=== PATIENT | female | born 1955 | race Caucasian/White ===

== ENCOUNTER 2020-03-30 15:15 | Emergency (ER) | payer MEDICARE, BC ==
[2020-03-30] MEDS ORDERED: Sodium Chloride 0.9% 10 ML Syringe FLUSH PRN (15:32)
[2020-03-30] MEDS ORDERED: Lactated Ringers 1,000 ML IV ONE (15:53)
[2020-03-30 16:06] LABS: CHLORIDE,CL 98 mmol/L (98-107); SODIUM,NA 134 mmol/L (136-145)
[2020-03-30 16:09] LABS: ANION GAP 14.7 mmol/L (10-20)
[2020-03-30] MEDS ORDERED: metroNIDAZOLE/Normal Saline 500 MG in Premix Bag 1 BAG IV ONE (16:13)
[2020-03-30] MEDS ORDERED: Lactated Ringers 1,000 ML IV SCH (17:00)
--- NOTE | 2020-03-30 17:31 | EDM.PDOC ---
ED HPI GENERAL MEDICAL PROBLEM - General Chief Complaint: General Stated Complaint: POSSIBLE CONCUSSION AND DEHYDRATION Time Seen by Provider: 03/30/20 15:30 Source of Information: Reports: Patient History Limitations: Reports: No Limitations - History of Present Illness INITIAL COMMENTS - FREE TEXT/NARRATIVE: Patient comes emergency department today from the clinic for further evaluation of bowel episode. This patient last night was at home she felt lightheaded and she passed out fell against the wall striking her head. She did not get knocked out she reports. She has no headache nausea vomiting blurred vision visual acuity changes head neck or back pain today or now. She went to the clinic today because she has had diarrhea constantly since 07 of March. She has about anywhere from 4-6 very watery diarrheal stools every day. Primarily in the morning. She has little appetite. She has been trying to drink fluids. She has not had much for nausea or vomiting. No abdominal pain or cramping. No chest pain no shortness of breath or difficulty breathing. No palpitations. No hematuria dysuria or urinary frequency. She has been seen in the clinic multi ple times since March 07 and has only been tested for COVID which were all negative an again today she was negative. No stool cultures or labs have been obtained per the patient. She was on anti-biotics at the end of January for a dental infection. Abdominal Pain Score (Numeric/FACES): 5 - Related Data Allergies Allergy/AdvReac Type Severity Reaction Status Date / Time No Known Allergies Allergy Verified 03/30/20 16:18 Home Meds: Home Meds Calcium Carb, Citrate/Vit D3 [Calcium + D3 ER Tablet] 1 each PO BID 03/30/20 [History] Latanoprost [Xalatan] 1 drop EYEBOTH DAILY 03/30/20 [History] Multivitamin 1 each PO DAILY 03/30/20 [History] Vancomycin [Vancocin 125 MG Capsule] 125 mg PO Q6HR #40 cap 03/30/20 [Rx] Past Medical History HEENT History: Reports: Cataract, Glaucoma Musculoskeletal History: Reports: Arthritis Oncologic (Cancer) History: Reports: Breast, Squamous Cell Carcinoma - Past Surgical History Oncologic Surgical History: Reports: Lumpectomy Social & Family History - Tobacco Use Tobacco Use Status *Q: Never Tobacco User ED ROS GENERAL - Review of Systems Review Of Systems: Comprehensive ROS is negative, except as noted in HPI. ED EXAM, GENERAL - Physical Exam Exam: See Below Exam Limited By: No Limitations General Appearance: Alert, WD/WN, No Apparent Distress Eye Exam: Bilateral Eye: PERRL Ears: Normal External Exam Nose: Normal Inspection Throat/Mouth: Normal Inspection, Normal Lips Head: Atraumatic, Normocephalic Neck: Normal Inspection, Supple, Non-Tender, Full Range of Motion Respiratory/Chest: No Respiratory Distress, Lungs Clear, Normal Breath Sounds, No Accessory Muscle Use, Chest Non-Tender Cardiovascular: Normal Peripheral Pulses, Regular Rate, Rhythm, Tachycardia (Tachycardia with bounding peripheral pulses) GI/Abdominal: Normal Bowel Sounds (hyperactive), Soft, Non-Tender, No Organomegaly, No Distention, Pelvis Stable (Female) Exam: Deferred Rectal (Female) Exam: Deferred Back Exam: Normal Inspection, Full Range of Motion Extremities: Normal Inspection, Normal Range of Motion, Non-Tender, No Pedal Edema, Normal Capillary Refill Neurological: Alert, Oriented, Normal Cognition, No Motor/Sensory Deficits Psychiatric: Normal Affect, Normal Mood Skin Exam: Dry, Intact, No Rash, Cool, Pallor Course - Vital Signs Last Recorded V/S: Last Vital Signs Temp 98 F 03/30/20 15:20 Pulse 111 H 03/30/20 15:20 Resp 16 03/30/20 15:20 BP 94/68 03/30/20 15:20 Pulse Ox 97 03/30/20 15:20 - Orders/Labs/Meds Orders: Active Orders 24 hr Category Date Time Status BLOOD SMEARS TO PATHOLOGIST [REF] Stat Lab 03/30/20 15:38 Received CLOSTRIDIUM DIFFICILE TOX RFLX [MREF] Stat Lab 03/30/20 16:30 Received CULTURE BLOOD [BC] Stat Lab 03/30/20 16:04 Received CULTURE BLOOD [BC] Stat Lab 03/30/20 16:09 Received Lactated Ringers [Ringers, Lactated] 1,000 ml Med 03/30/20 17:00 Active IV ASDIRECTED Sodium Chloride 0.9% [Saline Flush] Med 03/30/20 15:32 Active 10 ml FLUSH ASDIRECTED PRN Blood Culture x2 Reflex Set [OM.PC] Stat Oth 03/30/20 15:55 Ordered Isolation [COMM] Stat Oth 03/30/20 15:53 Ordered Peripheral IV Insertion Adult [OM.PC] Stat Oth 03/30/20 15:32 Ordered Medication Orders Lactated Ringer's (Ringers, Lactated) 1,000 mls @ 500 drops/hr IV ASDIRECTED TENISHA Last Admin: 03/30/20 17:43 Dose: 500 drops/hr Documented by: JAQUELIN Sodium Chloride (Saline Flush) 10 ml FLUSH ASDIRECTED PRN PRN Reason: Keep Vein Open Labs: Laboratory Tests 03/30/20 03/30/20 03/30/20 Range/Units 15:28 15:28 15:28 WBC 20.6 H* (4.0-10.0) x10^3/uL RBC 4.67 (4.00-5.50) x10^6/uL Hgb 13.9 (12.0-16.0) g/dL Hct 40.7 (33.0-47.0) % MCV 87.2 (78.0-93.0) fL MCH 29.8 (26.0-32.0) pg MCHC 34.2 (32.0-36.0) g/dL RDW Coeff of Alicia 13.1 (10.0-15.0) % Plt Count 358 (130-400) x10^3/uL Add Manual Diff Yes Neutrophils % (Manual) 37 L (50-80) % Band Neutrophils % 49 H (0-6) % Lymphocytes % (Manual) 6 L (25-50) % Monocytes % (Manual) 6 (2-11) % Eosinophils % (Manual) 1 (0-4) % Blast Cells % 1 H (0) % Platelet Estimate Adequate Sodium 134 L (136-145) mmol/L Potassium 3.7 (3.5-5.1) mmol/L Chloride 98 (98-107) mmol/L Carbon Dioxide 25 (21-32) mmol/L Anion Gap 14.7 (10-20) mmol/L BUN 27 H (7-18) mg/dL Creatinine 1.8 H (0.55-1.02) mg/dL Est Cr Clr Drug Dosing TNP Estimated GFR (MDRD) 28 Glucose 120 H (74-106) mg/dL Lactic Acid 2.1 H* (0.4-2.0) mmol/L Calcium 8.6 (8.5-10.1) mg/dL Corrected Calcium 9.72 (8.5-10.1) mg/dL Magnesium 2.1 (1.8-2.4) mg/dL Total Bilirubin 0.7 (0.2-1.0) mg/dL AST 19 (15-37) U/L ALT 23 (14-59) U/L Alkaline Phosphatase 76 (46-116) U/L C-Reactive Protein 34.3 H (<=0.9) mg/dL Total Protein 6.3 L (6.4-8.2) g/dL Albumin 2.6 L (3.4-5.0) g/dL Globulin 3.7 Albumin/Globulin Ratio 0.70 Urine Color (YELLOW) Urine Appearance (CLEAR) Urine pH (5.0-8.0) Ur Specific [place] Urine Protein (NEGATIVE) mg/dL Urine Glucose (UA) (NEGATIVE) mg/dL Urine Ketones (NEGATIVE) mg/dL Urine Occult Blood (NEGATIVE) Urine Nitrite (NEGATIVE) Urine Bilirubin (NEGATIVE) Urine Urobilinogen (0.2) EU/dL Ur Leukocyte Esterase (NEGATIVE) U Hyaline Cast (Auto) Urine RBC (NOT SEEN) /HPF Urine WBC (NOT SEEN) /HPF Ur Squamous Epith Cells (NEGATIVE) /HPF Amorphous Sediment Urine Bacteria (NEGATIVE) /HPF Granular Casts (Auto) Urine Mucus (NEGATIVE) /LPF 03/30/20 Range/Units 16:30 WBC (4.0-10.0) x10^3/uL RBC (4.00-5.50) x10^6/uL Hgb (12.0-16.0) g/dL Hct (33.0-47.0) % MCV (78.0-93.0) fL MCH (26.0-32.0) pg MCHC (32.0-36.0) g/dL RDW Coeff of Alicia (10.0-15.0) % Plt Count (130-400) x10^3/uL Add Manual Diff Neutrophils % (Manual) (50-80) % Band Neutrophils % (0-6) % Lymphocytes % (Manual) (25-50) % Monocytes % (Manual) (2-11) % Eosinophils % (Manual) (0-4) % Blast Cells % (0) % Platelet Estimate Sodium (136-145) mmol/L Potassium (3.5-5.1) mmol/L Chloride (98-107) mmol/L Carbon Dioxide (21-32) mmol/L Anion Gap (10-20) mmol/L BUN (7-18) mg/dL Creatinine (0.55-1.02) mg/dL Est Cr Clr Drug Dosing Estimated GFR (MDRD) Glucose (74-106) mg/dL Lactic Acid (0.4-2.0) mmol/L Calcium (8.5-10.1) mg/dL Corrected Calcium (8.5-10.1) mg/dL Magnesium (1.8-2.4) mg/dL Total Bilirubin (0.2-1.0) mg/dL AST (15-37) U/L ALT (14-59) U/L Alkaline Phosphatase (46-116) U/L C-Reactive Protein (<=0.9) mg/dL Total Protein (6.4-8.2) g/dL Albumin (3.4-5.0) g/dL Globulin Albumin/Globulin Ratio Urine Color Dark yellow H (YELLOW) Urine Appearance Slightly cloudy H (CLEAR) Urine pH 5.0 (5.0-8.0) Ur Specific [place] <=1.005 Urine Protein Trace H (NEGATIVE) mg/dL Urine Glucose (UA) Negative (NEGATIVE) mg/dL Urine Ketones Negative (NEGATIVE) mg/dL Urine Occult Blood Trace-lysed H (NEGATIVE) Urine Nitrite Negative (NEGATIVE) Urine Bilirubin Negative (NEGATIVE) Urine Urobilinogen 0.2 (0.2) EU/dL Ur Leukocyte Esterase Negative (NEGATIVE) U Hyaline Cast (Auto) Few Urine RBC 0-5 (NOT SEEN) /HPF Urine WBC 0-5 (NOT SEEN) /HPF Ur Squamous Epith Cells Few H (NEGATIVE) /HPF Amorphous Sediment Moderate Urine Bacteria Moderate H (NEGATIVE) /HPF Granular Casts (Auto) Moderate Urine Mucus Few H (NEGATIVE) /LPF Meds: Medications Generic Name Dose Route Start Last Admin Trade Name Freq PRN Reason Stop Dose Admin Lactated Ringer's 1,000 mls @ 500 drops/hr 03/30/20 17:00 03/30/20 17:43 Ringers, Lactated IV 500 drops/hr ASDIRECTED TENISHA Administration Sodium Chloride 10 ml 03/30/20 15:32 Saline Flush FLUSH ASDIRECTED PRN Keep Vein Open Discontinued Medications Generic Name Dose Route Start Last Admin Trade Name Freq PRN Reason Stop Dose Admin Lactated Ringer's 1,000 mls @ 999 mls/hr 03/30/20 15:53 03/30/20 15:25 Ringers, Lactated IV 03/30/20 16:53 999 mls/hr ONETIME ONE Administration Metronidazole 500 mg/ Premix 100 mls @ 100 mls/hr 03/30/20 16:13 03/30/20 16:27 IV 03/30/20 17:12 100 mls/hr ONETIME ONE Administration Vancomycin HCl 125 mg 03/30/20 17:33 03/30/20 18:06 Vancocin 125 Mg Capsule PO 03/30/20 17:34 125 mg NOW STA Administration - Re-Assessments/Exams Free Text/Narrative Re-Assessment/Exam: 03/30/20 17:29 IV was established labs are drawn. LR 1 L wide open. Stool cultures pending her stool is very foul-smelling greenish in color and pure water. UA pending. Her laboratory evaluation is rather interesting with a WBC of 20.6, with a normal hemoglobin at 13 and a platelets in the 300s. She also has 49% banded neutrophils with 1% blast cells. For a blood smear pending. 03/30/20 17:31 Comprehensive panel shows a sodium of 134 with a creatinine of 1.8, BUN 27, lactic acid 2.1 potassium is normal at 3.7 as well as magnesium at 2.1. C-reactive protein is quite elevated at 34.3. Urinalysis is trace protein trace blood negative for nitrites and leukocytes. U RBCs and you WBCs are negative. Moderate bacteria. Most likely contaminant. I really have concerns that this patient has an underlying smoldering C. difficile infection that has been untreated for quite some time as she has only been tested for Covid in reviewing her pharmacy documentation she was in clindamycin at the end of January for an oral surgery which really is very high risk for C. difficile infection. Despite that she does have a quite elevated white blood cell count but she does not appear toxic. Her blood pressure is somewhat labile in the 90s. She also has quite a bit of bandemia as well as 1% blast cells. Peripheral blood smear is pending although I think that this is most likely due to the underlying C. difficile infection that has not been treated. She was given a dose of Flagyl 500 mg IV mcback. She does have a appointment tomorrow with her primary care provider Dr. Mann for the diarrhea. I discussed this case with her especially the blasts cells on the CBC which I think are from the infection and blood cultures are pending. Dr. Mann is okay with discharge at this time and repeat labs and evaluation tomorrow. 03/30/20 18:45 2nd liter of NS initially at 500mls an hour although after 500mls increased to 999mls/hr. Her skin is still pale but warm and dry now. Has urinated since she has been here. Small amount. No nausea. HR is still minimally elevated at 104 and BP 92/57. Feels better. will continue with the fluids at this time. 03/30/20 19:26 Her blood pressure is in the mid 90s systolically. She was ambulatory around the department on any weakness dizziness lightheadedness. Feels better than she has in weeks. Her skin is still pink warm and dry. She has been able to tolerate not only oral fluids in the emergency department as well as some granola bars in the emergency department. We will discharge her home at this time however close follow-up with primary care tomorrow. She is comfortable with this plan her questions are answered. Departure - Departure Time of Disposition: 19:27 Disposition: Home, Self-Care 01 Clinical Impression: LESLY (acute kidney injury) Leukocytosis Qualifiers: Leukocytosis type: bandemia Qualified Code(s): D72.825 - Bandemia Diarrhea Qualifiers: Diarrhea type: presumed infectious Qualified Code(s): R19.7 - Diarrhea, unspecified - Discharge Information Prescriptions: Vancomycin [Vancocin 125 MG Capsule] 125 mg PO Q6HR #40 cap Instructions: Antibiotic Medicine, Adult, Rivy-os-Doka, Clostridioides Difficile Infection, [id number], Diarrhea, Adult, [id number] Referrals: Juliana Mann MD [Primary Care Provider] - Forms: ED Department Discharge Additional Instructions: Try to drink plenty of fluids especially electrolyte containing fluids such as gatorade and or Powerade. If you are not urinating every 2-3 hrs your are not drinking enough fluids. I can not stress this enough to do this until the diarrhea has resolved. Vancomycin, 1 tablet 4 times a day by mouth for the next 10 days. First dose given in the ED. Dose for tonight and the morning sent home with the patient RX to [facility] for total of [address] Mann tomorrow as already planned. Sepsis Event Note (ED) - Evaluation Sepsis Screening Result: No Definite Risk - Focused Exam Vital Signs: Vital Signs Temp Pulse Resp BP Pulse Ox 03/30/20 15:20 98 F 111 H 16 94/68 97 - My Orders Last 24 Hours: My Active Orders 03/30/20 15:32 Sodium Chloride 0.9% [Saline Flush] 10 ml FLUSH ASDIRECTED PRN Peripheral IV Insertion Adult [OM.PC] Stat 03/30/20 15:38 BLOOD SMEARS TO PATHOLOGIST [REF] Stat 03/30/20 15:53 Isolation [COMM] Stat 03/30/20 15:55 Blood Culture x2 Reflex Set [OM.PC] Stat 03/30/20 16:04 CULTURE BLOOD [BC] Stat 03/30/20 16:09 CULTURE BLOOD [BC] Stat 03/30/20 16:30 CLOSTRIDIUM DIFFICILE TOX RFLX [MREF] Stat 03/30/20 17:00 Lactated Ringers [Ringers, Lactated] 1,000 ml IV ASDIRECTED - Assessment/Plan Last 24 Hours: My Active Orders 03/30/20 15:32 Sodium Chloride 0.9% [Saline Flush] 10 ml FLUSH ASDIRECTED PRN Peripheral IV Insertion Adult [OM.PC] Stat 03/30/20 15:38 BLOOD SMEARS TO PATHOLOGIST [REF] Stat 03/30/20 15:53 Isolation [COMM] Stat 03/30/20 15:55 Blood Culture x2 Reflex Set [OM.PC] Stat 03/30/20 16:04 CULTURE BLOOD [BC] Stat 03/30/20 16:09 CULTURE BLOOD [BC] Stat 03/30/20 16:30 CLOSTRIDIUM DIFFICILE TOX RFLX [MREF] Stat 03/30/20 17:00 Lactated Ringers [Ringers, Lactated] 1,000 ml IV ASDIRECTED Assessment:: Diarrhea, Most likely from C Diff recent Clindamycin RX and symptoms since that time. Results pending. LESLY from diarrhea for a month infectious not treated. LEukocytosis with bandemia as well as 1 blast cell. This is most likely due to the presence fo the C Diff infection. Although peripheral smear pending and PCP follow up tomorrow to follow.
[2020-03-30] MEDS ORDERED: Vancomycin 125 MG Cap PO STA (17:33)
[2020-03-30 19:26] VITALS: PULSE 97
[2020-03-30 20:47] VITALS: BP 91/59
== END 2020-03-30 19:57 | disposition home or self-care (01) ==
LOC: VM.ED 15:15
DX: N17.9 Acute kidney failure, unspecified (principal); D72.825 Bandemia; R19.7 Diarrhea, unspecified
CPT/HCPCS: 36415; 80053; 81001; 83605; 83735; 85008; 85025; 85046; 86140; 87040; 87324; 87493; 96365; 99284; 99284-25; A9270-GY; J3490; J7120

== ENCOUNTER 2020-03-31 11:33 | Inpatient (IN) | payer MEDICARE, BC ==
[2020-03-31] MEDS ORDERED: Sodium Chloride 0.9% 500 ML IV ONE ×2 (11:51→13:52)
[2020-03-31] MEDS ORDERED: Ondansetron 4 MG/2 ML SDV IVPUSH PRN (12:18)
[2020-03-31] MEDS: metroNIDAZOLE/Normal Saline 500 MG in Premix Bag 1 BAG IV SCH ×2 (12:25→20:19)
--- NOTE | 2020-03-31 12:28 | PCM.HP.2 ---
H&P History of Present Illness - General Date of Service: 03/31/20 Admit Problem/Dx: Admission Diagnosis/Problem Admission Diagnosis/Problem Clostridium difficile diarrhea Source of Information: Patient History Limitations: Reports: No Limitations - History of Present Illness Initial Comments - Free Text/Narative: Mrs. Steel is a 65 yo female who is currently healthy with remote PMH of breast cancer who presented to clinic for ER follow-up related to diarrhea. She has had diarrhea for the past 3 weeks. She has been having 4+ loose stools/day. No blood in the stools. Over the past few days, she has had increasing abdominal pain as well as more generalized weakness and malaise. She has also had some headaches and myalgias. She has had some chills but no fever. 2 nights ago, she did have a syncopal event that resulted in a fall. She has been having very little appetite as well as nausea. She has not vomited at all. She does feel her mouth is dry and states that her urine has been darker than usual. She is also voiding less often than usual. She has taken pepto and imodium without any benefit. She was seen in the ER yesterday and given IV fluids. Her stool was sent for c. difficile and this has since returned positive. She did take clindamycin within the past few months for dental reasons. - Related Data Allergies/Adverse Reactions: Allergies Allergy/AdvReac Type Severity Reaction Status Date / Time No Known Allergies Allergy Verified 03/30/20 16:18 Home Medications: Home Meds Calcium Carb, Citrate/Vit D3 [Calcium + D3 ER Tablet] 1 each PO BID 03/30/20 [History] Multivitamin 1 each PO DAILY 03/30/20 [History] Past Medical History Musculoskeletal History: Reports: Arthritis Oncologic (Cancer) History: Reports: Breast, Squamous Cell Carcinoma - Infectious Disease History Infectious Disease History: Reports: C-Difficile - Past Surgical History HEENT Surgical History: Reports: Tonsillectomy Female Surgical History: Reports: Breast Biopsy Oncologic Surgical History: Reports: Lumpectomy Social & Family History - Family History Cardiac: Reports: High Cholesterol Neurological: Reports: CVA Endocrine/Metabolic: Reports: Diabetes, Type I - Tobacco Use Tobacco Use Status *Q: Never Tobacco User - Alcohol Use Alcohol Use History: No Alcohol Use in Last Twelve Months: Yes Alcohol Use Frequency: Weekly - Recreational Drug Use Recreational Drug Use: No - Living Situation & Occupation Living situation: Reports: , with Spouse 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 Denies: Fever HEENT: Reports: No Symptoms Pulmonary: Reports: No Symptoms Cardiovascular: Reports: No Symptoms Gastrointestinal: Reports: Abdominal Pain, Diarrhea, Decreased Appetite, Nausea. Denies: Bloody Stool, Vomiting Genitourinary: Reports: No Symptoms Musculoskeletal: Reports: Arm Pain, Leg Pain Skin: Reports: No Symptoms Psychiatric: Reports: No Symptoms Neurological: Reports: Headache Hematologic/Lymphatic: Reports: No Symptoms Exam - Exam Exam: See Below - Vital Signs Vital Signs: Last Vital Signs Temp 38.3 C H 03/31/20 12:04 Pulse 105 H 03/31/20 12:04 Resp 16 03/31/20 12:04 BP 82/53 L 03/31/20 12:04 Pulse Ox 95 03/31/20 12:04 - Exam General: Alert, Oriented, Cooperative HEENT: Conjunctiva Clear, Pupils Equal, Pupils Reactive, Other (oral mucosa is slightly dry) Neck: Supple, Trachea Midline. No: Lymphadenopathy, Thyromegaly Lungs: Clear to Auscultation, Normal Respiratory Effort Cardiovascular: Regular Rhythm, Normal S1, Normal S2, Tachycardia GI/Abdominal Exam: Normal Bowel Sounds, Soft, Distended, Tender (diffuse tenderness to palpation). No: Guarding, Rigid, Rebound Extremities: Normal Inspection, Non-Tender, No Pedal Edema, Normal Capillary Refill Peripheral Pulses: 2+: Radial (L), Radial (R) Skin: Warm, Dry, Intact Neuro Extensive - Mental Status: Alert, Oriented x3, Normal Mood/Affect, Normal Cognition Sepsis Event Note - Focused Exam Vital Signs: Vital Signs Temp Pulse Resp BP Pulse Ox 03/31/20 12:04 38.3 C H 105 H 16 82/53 L 95 - Problem List (1) Sepsis SNOMED Code(s): 78259750 ICD Code: A41.9 - SEPSIS, UNSPECIFIED ORGANISM Status: Acute Current Visit: Yes Qualifiers: Sepsis type: sepsis due to unspecified organism Sepsis acute organ dysfunction status: with acute organ dysfunction Severe sepsis acute organ dysfunction type: acute renal failure Acute renal failure type: unspecified Severe sepsis shock status: without septic shock Qualified Code(s): A41.9 - Sepsis, unspecified organism; R65.20 - Severe sepsis without septic shock; N17.9 - Acute kidney failure, unspecified (2) C. difficile colitis SNOMED Code(s): 753156640 ICD Code: A04.72 - ENTEROCOLITIS D/T CLOSTRIDIUM DIFFICILE, NOT SPCF RECUR Status: Acute Current Visit: Yes (3) LESLY (acute kidney injury) SNOMED Code(s): 50772825, 25123779 ICD Code: N17.9 - ACUTE KIDNEY FAILURE, UNSPECIFIED Status: Acute Current Visit: No Problem List Initiated/Reviewed/Updated: Yes Orders Last 24hrs: Active Orders 24 hr Category Date Time Status Admission Status [Patient Status] [ADT] Routine ADT 03/31/20 11:38 Active Notify Provider Vital Signs [RC] ASDIRECTED Care 03/31/20 12:04 Ordered Oxygen Therapy [RC] PRN Care 03/31/20 12:03 Ordered Up With Assistance [RC] ASDIRECTED Care 03/31/20 12:03 Ordered VTE/DVT Education [RC] PER UNIT ROUTINE Care 03/31/20 12:03 Ordered Vital Signs [RC] Q4H Care 03/31/20 12:03 Ordered Regular Diet [DIET] Diet 03/31/20 Lunch Ordered Enoxaparin [Lovenox] Med 04/01/20 08:00 Ordered 40 mg SUBCUT DAILY Ondansetron [Zofran] Med 03/31/20 12:18 Ordered 4 mg IVPUSH Q8H PRN Sodium Chloride 0.9% @ 150 MLS/HR (1000ml) Med 03/31/20 12:15 Ordered Sodium Chloride 0.9% [Normal Saline] 1,000 ml IV ASDIRECTED Sodium Chloride 0.9% @ 500 MLS/HR(500ml) Med 03/31/20 11:51 Ordered Sodium Chloride 0.9% [Normal Saline] 500 ml IV ONETIME Sodium Chloride 0.9% [Saline Flush] Med 03/31/20 11:52 Active 10 ml FLUSH ASDIRECTED PRN Vancomycin [Vancocin 125 MG Capsule] Med 03/31/20 16:00 Ordered 500 mg PO QID metroNIDAZOLE/Normal Saline [Flagyl 500 MG in NS 100 ML Med 01/07/21 12:15 Ordered ] 500 mg Premix Bag 1 bag IV Q8H Peripheral IV Insertion Adult [OM.PC] Routine Oth 03/31/20 11:52 Ordered Resuscitation Status Routine Resus Stat 03/31/20 12:03 Ordered Medication Orders Enoxaparin Sodium (Lovenox) 40 mg SUBCUT DAILY TENISHA Sodium Chloride (Normal Saline) 500 mls @ 500 mls/hr IV ONETIME ONE Stop: 03/31/20 12:50 Metronidazole 500 mg/ Premix 100 mls @ 100 mls/hr IV Q8H TENISHA Sodium Chloride (Normal Saline) 1,000 mls @ 150 mls/hr IV ASDIRECTED TENISHA Ondansetron HCl (Zofran) 4 mg IVPUSH Q8H PRN PRN Reason: Nausea Sodium Chloride (Saline Flush) 10 ml FLUSH ASDIRECTED PRN PRN Reason: Keep Vein Open Vancomycin HCl (Vancocin 125 Mg Capsule) 500 mg PO QID TENISHA Assessment/Plan Comment:: 65 yo female who is admitted with sepsis secondary to C. difficile. #1 Sepsis, secondary to #2 #2 C. difficile colitis #3 LESLY #4 Hyponatremia, mild - Meets sepsis criteria due to tachycardia and leukocytosis. Also hypotensive in clinic. Had significant creatinine elevation yesterday. Drug Room Operator is improved to normal today. - Secondary to c. difficile colitis in the absence of other symptoms. - Given severity of WBC elevation and presence of hypotension, patient will be treated with flagyl and vancomycin based on current protocols. - Flagyl 500 mg IV q8h and Vancomycin 500 mg QID PO. Note vancomycin dose is high but this is recommended dose with presence of hypotension. - 500 mL NaCl bolus now. Then IV fluids 150 mL/hr. - Patient can eat a regular diet. - Only home medications are vitamins, which will be held. Patient will be admitted to acute - anticipate admission for >2 midnights given severity of illness. Do anticipate patient will be able to discharge directly to home once medically stable and that she will not require swing bed. Code status is full - discussed on admission. Lovenox for VTE prophylaxis.
[2020-03-31] MEDS: Sodium Chloride 0.9% 1,000 ML IV SCH ×2 (13:02→14:06)
[2020-03-31] MEDS: Acetaminophen 325 MG Tab PO PRN ×2 (13:36→18:12)
[2020-03-31] MEDS ORDERED: Sodium Chloride 0.9% 1,000 ML IV ONE (14:09)
[2020-03-31] MEDS: Vancomycin 125 MG Cap PO SCH ×2 (16:31→20:17)
[2020-03-31] MEDS ORDERED: Ibuprofen 200 MG Tab PO PRN (19:37)
[2020-04-01] MEDS: Sodium Chloride 0.9% 1,000 ML IV SCH (02:55)
[2020-04-01] MEDS: metroNIDAZOLE/Normal Saline 500 MG in Premix Bag 1 BAG IV SCH ×3 (04:02→19:50)
[2020-04-01 07:03] LABS: ANION GAP 10.4 mmol/L (10-20)
[2020-04-01] MEDS: Enoxaparin 40 MG/0.4 ML Syringe SUBCUT SCH (08:37)
[2020-04-01] MEDS: Acetaminophen 325 MG Tab PO PRN ×2 (08:37→16:00)
[2020-04-01] MEDS: Vancomycin 125 MG Cap PO SCH ×4 (08:37→19:50)
--- NOTE | 2020-04-01 10:25 | PCM.PN ---
- General Info Date of Service: 04/01/20 Subjective Update: 65 yo female hospital day #2 admitted with sepsis secondary to c. difficile colitis. Patient states she is not really feeling much better today than yesterday. Her abdomen is still distended and uncomfortable. She feels she has to hold her stomach whenever she tries to move anywhere or do anything. She has continued with frequent loose stools. No blood in the stools. She is not passing gas aside from with the bowel movements. She also notes that her urine is generally mixed with her stools so she is not sure how often she is voiding or what color her urine is. She had fever and chills last night. She has also felt some pressure in her chest since last night. No shortness of breath. Her nausea is better controlled. She has not been vomiting. - Review of Systems General: Reports: Fever, Weakness, Fatigue, Chills HEENT: Reports: No Symptoms Pulmonary: Reports: No Symptoms Cardiovascular: Reports: No Symptoms Gastrointestinal: Reports: Abdominal Pain, Decreased Appetite, Diarrhea. Denies: Nausea, Vomiting Genitourinary: Reports: No Symptoms Musculoskeletal: Reports: No Symptoms Skin: Reports: No Symptoms Neurological: Reports: No Symptoms Psychiatric: Reports: No Symptoms - Patient Data Vitals - Most Recent: Last Vital Signs Temp 37.1 C 04/01/20 10:00 Pulse 80 04/01/20 10:00 Resp 18 04/01/20 10:00 BP 85/48 L 04/01/20 10:00 Pulse Ox 95 04/01/20 10:00 Weight - Most Recent: 61.689 kg I&O - Last 24 Hours: Intake & Output 03/31/20 04/01/20 04/01/20 22:59 06:59 14:59 Intake Total 2983 4100 480 Output Total 780 650 Balance 2203 3450 480 Lab Results Last 24 Hours: Laboratory Results - last 24 hr 03/31/20 03/31/20 04/01/20 Range/Units 13:36 16:00 06:33 WBC 21.0 H* (4.0-10.0) x10^3/uL RBC 4.44 (4.00-5.50) x10^6/uL Hgb 13.1 (12.0-16.0) g/dL Hct 38.5 (33.0-47.0) % MCV 86.7 (78.0-93.0) fL MCH 29.5 (26.0-32.0) pg MCHC 34.0 (32.0-36.0) g/dL RDW Coeff of Alicia 13.5 (10.0-15.0) % Plt Count 395 (130-400) x10^3/uL Add Manual Diff Yes Neutrophils % (Manual) 79 (50-80) % Band Neutrophils % 4 (0-6) % Lymphocytes % (Manual) 3 L (25-50) % Monocytes % (Manual) 13 H (2-11) % Metamyelocytes % 1 H (0) % Platelet Estimate Adequate Sodium (136-145) mmol/L Potassium (3.5-5.1) mmol/L Chloride (98-107) mmol/L Carbon Dioxide (21-32) mmol/L Anion Gap (10-20) mmol/L BUN (7-18) mg/dL Creatinine (0.55-1.02) mg/dL Est Cr Clr Drug Dosing mL/min Estimated GFR (MDRD) Glucose (74-106) mg/dL Lactic Acid 2.8 H* 1.4 (0.4-2.0) mmol/L Calcium (8.5-10.1) mg/dL C-Reactive Protein (<=0.9) mg/dL 04/01/20 04/01/20 Range/Units 06:33 06:33 WBC (4.0-10.0) x10^3/uL RBC (4.00-5.50) x10^6/uL Hgb (12.0-16.0) g/dL Hct (33.0-47.0) % MCV (78.0-93.0) fL MCH (26.0-32.0) pg MCHC (32.0-36.0) g/dL RDW Coeff of Alicia (10.0-15.0) % Plt Count (130-400) x10^3/uL Add Manual Diff Neutrophils % (Manual) (50-80) % Band Neutrophils % (0-6) % Lymphocytes % (Manual) (25-50) % Monocytes % (Manual) (2-11) % Metamyelocytes % (0) % Platelet Estimate Sodium 133 L (136-145) mmol/L Potassium 4.4 (3.5-5.1) mmol/L Chloride 103 (98-107) mmol/L Carbon Dioxide 24 (21-32) mmol/L Anion Gap 10.4 (10-20) mmol/L BUN 16 (7-18) mg/dL Creatinine 1.0 (0.55-1.02) mg/dL Est Cr Clr Drug Dosing 51.80 mL/min Estimated GFR (MDRD) 55 Glucose 121 H (74-106) mg/dL Lactic Acid 1.5 (0.4-2.0) mmol/L Calcium 7.1 L D (8.5-10.1) mg/dL C-Reactive Protein 42.2 H (<=0.9) mg/dL Med Orders - Current: Current Medications Acetaminophen (Tylenol) 650 mg PO Q6H PRN PRN Reason: Fever Last Admin: 04/01/20 08:37 Dose: 650 mg Documented by: Enoxaparin Sodium (Lovenox) 40 mg SUBCUT DAILY [facility] Last Admin: 04/01/20 08:37 Dose: 40 mg Documented by: Metronidazole 500 mg/ Premix 100 mls @ 100 mls/hr IV Q8H [facility] Last Admin: 04/01/20 04:02 Dose: 100 mls/hr Documented by: Ibuprofen (Motrin) 600 mg PO Q6H PRN PRN Reason: Pain/Fever Ondansetron HCl (Zofran) 4 mg IVPUSH Q8H PRN PRN Reason: Nausea Last Admin: 03/31/20 13:02 Dose: 4 mg Documented by: Sodium Chloride (Saline Flush) 10 ml FLUSH ASDIRECTED PRN PRN Reason: Keep Vein Open Vancomycin HCl (Vancocin 125 Mg Capsule) 500 mg PO QID [facility] Last Admin: 04/01/20 08:37 Dose: 500 mg Documented by: Discontinued Medications Sodium Chloride (Normal Saline) 500 mls @ 500 mls/hr IV ONETIME ONE Stop: 03/31/20 12:50 Last Admin: 03/31/20 12:24 Dose: 500 mls/hr Documented by: Sodium Chloride (Normal Saline) 1,000 mls @ 150 mls/hr IV ASDIRECTED [facility] Last Admin: 04/01/20 02:55 Dose: 150 mls/hr Documented by: Sodium Chloride (Normal Saline) 500 mls @ 500 mls/hr IV ONETIME ONE Stop: 03/31/20 14:51 Last Admin: 03/31/20 13:52 Dose: 500 mls/hr Documented by: Sodium Chloride (Normal Saline) 1,000 mls @ 999 mls/hr IV ONETIME ONE Stop: 03/31/20 15:09 Last Admin: 03/31/20 14:09 Dose: 999 mls/hr Documented by: - Exam General: Alert, Oriented, Cooperative, No Acute Distress HEENT: Mucous Membr. Moist/[place] Neck: Supple, Trachea Midline, No Thyromegaly. No: Lymphadenopathy Lungs: Clear to Auscultation, Normal Respiratory Effort Cardiovascular: Regular Rate, Regular Rhythm, No Murmurs GI/Abdominal Exam: Soft, No Organomegaly, No Mass, Distended, Tender, Abnormal Bowel Sounds (hypoactive throughout). No: Guarding, Rigid, Rebound Extremities: Normal Inspection, Non-Tender, No Pedal Edema Peripheral Pulses: 2+: Radial (L), Radial (R) Skin: Warm, Dry, Intact Neurological: No New Focal Deficit Sepsis Event Note - Evaluation Sepsis Screening Result: Severe Sepsis Risk - Focused Exam Vital Signs: Vital Signs Temp Temp Pulse Resp BP Pulse Ox 04/01/20 10:00 37.1 C 80 18 85/48 L 95 04/01/20 08:37 37.7 C 04/01/20 08:06 37.7 C 04/01/20 06:00 37.3 C 88 18 97/60 96 04/01/20 02:00 37.5 C 91 16 87/52 L 92 L - Problem List & Annotations (1) Sepsis SNOMED Code(s): 77864538 Code(s): A41.9 - SEPSIS, UNSPECIFIED ORGANISM Status: Acute Current Visit: Yes Qualifiers: Sepsis type: sepsis due to unspecified organism Sepsis acute organ dysfunction status: with acute organ dysfunction Severe sepsis acute organ dysfunction type: acute renal failure Acute renal failure type: unspecified Severe sepsis shock status: without septic shock Qualified Code(s): A41.9 - Sepsis, unspecified organism; R65.20 - Severe sepsis without septic shock; N17.9 - Acute kidney failure, unspecified (2) C. difficile colitis SNOMED Code(s): 958162721 Code(s): A04.72 - ENTEROCOLITIS D/T CLOSTRIDIUM DIFFICILE, NOT SPCF RECUR Status: Acute Current Visit: Yes (3) LESLY (acute kidney injury) SNOMED Code(s): 37686687, 09402961 Code(s): N17.9 - ACUTE KIDNEY FAILURE, UNSPECIFIED Status: Acute Current Visit: No (4) Hyponatremia SNOMED Code(s): 29432726 Code(s): E87.1 - HYPO-OSMOLALITY AND HYPONATREMIA Status: Acute Current Visit: Yes - Problem List Review Problem List Initiated/Reviewed/Updated: Yes - My Orders Last 24 Hours: My Active Orders 03/31/20 Lunch Regular Diet [DIET] 03/31/20 11:38 Admission Status [Patient Status] [ADT] Routine 03/31/20 11:52 Sodium Chloride 0.9% [Saline Flush] 10 ml FLUSH ASDIRECTED PRN Peripheral IV Insertion Adult [OM.PC] Routine 03/31/20 12:03 Oxygen Therapy [RC] .PRN Up With Assistance [RC] 08,20 Vital Signs [RC] 06,10,14,18,22,02 Resuscitation Status Routine 03/31/20 12:04 Notify Provider Vital Signs [RC] 06,10,14,18,22,02 03/31/20 12:15 metroNIDAZOLE/Normal Saline [Flagyl 500 MG in NS 100 ML] 500 mg Premix Bag 1 bag IV Q8H 03/31/20 12:18 Ondansetron [Zofran] 4 mg IVPUSH Q8H PRN 03/31/20 13:22 Acetaminophen [TylenoL] 650 mg PO Q6H PRN 03/31/20 16:00 Vancomycin [Vancocin 125 MG Capsule] 500 mg PO QID 03/31/20 16:09 Telemetry Monitoring [Cardiac Monitoring] [RC] 06,10,14,18,22,02 03/31/20 19:37 Ibuprofen [Motrin] 600 mg PO Q6H PRN 04/01/20 08:00 Enoxaparin [Lovenox] 40 mg SUBCUT DAILY 04/01/20 08:30 Abdomen 2V AP Flat Upright [CR] Urgent - Assessment Assessment:: 65 yo female admitted with sepsis secondary to c. difficile colitis. Is not really feeling much better today. Vitals are improved. Labs essentially stable. - Plan Plan:: 65 yo female who is admitted with sepsis secondary to C. difficile. #1 Sepsis, secondary to #2 #2 C. difficile colitis #3 LESLY, resolved #4 Hyponatremia, mild - Still meets sepsis criteria due to tachycardia and leukocytosis. Fish Trapper remains normal today. BP's much improved. Initial lactate was high but this was normal on recheck and again this morning. - Secondary to c. difficile colitis in the absence of other symptoms. - Continue IV flagyl and PO vancomycin. - Will D/C IV fluids for now given presumption that chest pressure is secondary to fluids and the fact that she is positive over 5L from admission (although accuracy is somewhat in question given inability to monitor urine output accurately). Will bolus IV fluids PRN. - Will get an x-ray today to evaluate for any significant ileus given her distension does seem worse today and she has hypoactive bowel sounds. - If x-ray shows ileus, she will be kept NPO with sips/chips and her IV fluids will be resumed. If x-ray does not show significant ileus, patient will continue on a regular diet. - Only home medications are vitamins, which will be held. - Repeat labs in the am. Patient will remain on acute today - anticipate another 1-2 days of admission prior to d/c home. Code status is full - discussed on admission. Lovenox for VTE prophylaxis.
--- NOTE | 2020-04-01 10:53 | CR ---
[id number] RAD/RAD Abd Flat and Upright 2V Exam: RAD Abd Flat and Upright 2V Clinical Data: ABDOMINAL DISTENTION C. DIFFICILE COMPARISON: NO PREVIOUS SIMILAR EXAM IS AVAILABLE FINDINGS: There is mild bowel distention There is no free air. There is a pelvic mass There is an eggshell calcification in the right side of the pelvis CT, MR, or ultrasound of the pelvis would be helpful IMPRESSION: MILD ILEUS NO FREE AIR PELVIC MASS. RIGHT SIDE PELVIC CALCIFICATION Claudio Juárez MD 04/01/20 [id number] Thank you for allowing us to participate in the care of your patient.
[2020-04-01] MEDS ORDERED: metroNIDAZOLE/Normal Saline 100 ML ONE (19:15)
[2020-04-02] MEDS: metroNIDAZOLE/Normal Saline 500 MG in Premix Bag 1 BAG IV SCH ×3 (04:12→20:05)
[2020-04-02 07:59] LABS: CHLORIDE,CL 102 mmol/L (98-107); SODIUM,NA 135 mmol/L (136-145)
[2020-04-02 08:05] LABS: ANION GAP 12.6 mmol/L (10-20)
[2020-04-02] MEDS: Vancomycin 125 MG Cap PO SCH ×4 (08:24→20:04)
[2020-04-02] MEDS: Enoxaparin 40 MG/0.4 ML Syringe SUBCUT SCH (08:24)
[2020-04-02] MEDS ORDERED: methylPREDNISolone Sodium Succinate 40 MG/1 ML SDV IVPUSH ONE (11:16)
[2020-04-02] MEDS: Mineral Oil/Petrolatum Ophth Oint 3.5 GM Tube EYEBOTH SCH ×2 (11:41→20:31)
[2020-04-02] MEDS: Cholestyramine/Sucrose Powder 4 GM Packet PO SCH ×2 (11:42→20:05)
--- NOTE | 2020-04-02 17:07 | PN ---
Progress Note for DARIEN WINSTON Date: 04/02/2020 Room #: [facility] CHIEF COMPLAINT: Abdominal pain. SUBJECTIVE: Hospital day #3 for a 65-year-old female patient who was admitted to the acute care floor at [facility] on 03/31/2019 with a diagnoses of sepsis, Clostridium difficile, acute kidney injury, and hyponatremia. The patient states today that she really is not feeling much better. She continues to have sharp, stabbing abdominal pain with watery foul-smelling diarrhea. The patient states she is trying to stay well hydrated with good p.o. fluid intake. She is feeling somewhat weak and tired. She states she really does not have much of an appetite. The patient denies any headaches, dizziness, or lightheadedness. The patient has not had any chest pain or palpitations. The patient denies any shortness of breath or cough. The patient states that her abdominal pain is colicky in nature. She has had some nausea but no vomiting. The patient does complain of dry eyes. The patient has not had any significant fevers over the past 24 hours. She denies any chills. REVIEW OF SYSTEMS: Constitutional: Overall, the patient is not feeling well. Respiratory: Negative. Cardiovascular: Negative. Abdomen: Sharp, stabbing, colicky abdominal pain; mild intermittent nausea; and watery, foul-smelling diarrhea. Skin: Negative. Neurological: Negative. PHYSICAL EXAMINATION: Vital Signs: Temperature 98.5, pulse 82, blood pressure 101/68, respirations 16, and oxygen saturation 95% on room air. Respiratory: Lungs are clear to auscultation bilaterally. Cardiovascular: Regular rate and rhythm. No murmur. Abdomen: Generalized tenderness throughout. Hyperactive bowel sounds in all quadrants. Abdomen is soft. Some guarding. Skin: Warm and dry, intact. Neurological: The patient is alert. The patient is oriented to person, place, and time. No focal neurological deficits. General: The patient is alert. The patient is cooperative. The patient does not appear to be in any acute distress. LABORATORY STUDIES: CBC: White blood cell count 14.4, hemoglobin 12.9, hematocrit 37.1, and platelets 430,000 with bands 5%, lymphocytes 6%, and monocytes 17%. BMP: Sodium 135, potassium 4.6, chloride 102, CO2 is 25, anion gap is 12.6, BUN is 13, and creatinine 0.9. GFR greater than 60. Glucose 99, calcium 7.3. C-reactive protein 36.2. ASSESSMENT: 1. Sepsis secondary to Clostridium difficile colitis. 2. Clostridium difficile colitis. 3. Acute kidney injury - resolved. 4. Abdominal pain secondary to Clostridium difficile. 5. Hyponatremia - improving. 6. Weakness and deconditioning. 7. Leukocytosis - improving. PLAN: Hospital day #3 for a 65-year-old female patient admitted with the above diagnoses. The patient met sepsis criteria on admission due to her tachycardia and leukocytosis. She also had hypotension in which she was fluid resuscitated with 5 L. The patient has been off IV fluids since yesterday. She is able to drink water adequately. We will continue on current antibiotics without any changes. We will change the patient's diet to a bland, BRAT diet. We will give 1 dose of a prednisone 40 mg IV for colon inflammation. We will also start the patient on cholestyramine twice daily for her diarrhea and abdominal pain. Encourage p.o. fluid intake. Discussed Clostridium difficile diet. Discussed adequate fluid hydration. I would like the patient to ambulate in the room as much as possible. The patient is a full code. The patient does wish to be transferred to a higher level of care should the need arise. Recheck laboratory work tomorrow morning. I do anticipate the patient to possibly need swing bed after tomorrow if her symptoms do not improve. TB: 04/02/2020 12:21:57 MODL: 04/02/2020 13:13:38 /[id number]
[2020-04-03] MEDS: metroNIDAZOLE/Normal Saline 500 MG in Premix Bag 1 BAG IV SCH ×3 (03:59→19:58)
[2020-04-03 08:04] LABS: CHLORIDE,CL 103 mmol/L (98-107); SODIUM,NA 135 mmol/L (136-145)
[2020-04-03 08:05] LABS: ANION GAP 11.4 mmol/L (10-20)
[2020-04-03] MEDS: Vancomycin 125 MG Cap PO SCH ×4 (08:40→19:57)
[2020-04-03] MEDS: Enoxaparin 40 MG/0.4 ML Syringe SUBCUT SCH (08:40)
[2020-04-03] MEDS: Cholestyramine/Sucrose Powder 4 GM Packet PO SCH ×2 (08:40→19:57)
[2020-04-03] MEDS: Mineral Oil/Petrolatum Ophth Oint 3.5 GM Tube EYEBOTH SCH ×3 (08:41→20:00)
[2020-04-03] MEDS ORDERED: methylPREDNISolone Sodium Succinate 40 MG/1 ML SDV IVPUSH ONE (09:47)
--- NOTE | 2020-04-03 11:53 | PN ---
Progress Note for DARIEN WINSTON Date: 04/03/2020 Room #: [id number] CHIEF COMPLAINT: Abdominal pain. SUBJECTIVE: Hospital day #4 for a 65-year-old female patient who was admitted to the acute care floor at [facility] on 03/31/2019 for a diagnosis of sepsis, Clostridium difficile, acute kidney injury, and hyponatremia. The patient states today that she is feeling somewhat better today. She continues to have abdominal cramping. The patient states that she noticed blood in her stool this morning. She has some weakness, but states that it is getting better. The patient has not had any headaches, dizziness, or lightheadedness. The patient denies any chest pain or shortness of breath. No palpitations. The patient was started on cholestyramine yesterday which seemed to improve her diarrhea. She states her stools have been a little more formed. The patient was also given a dose of prednisone IV yesterday which helped her abdominal cramping considerably. The patient states her appetite has increased. She is tolerating the BRAT diet without any complaints. The patient is staying well hydrated with good p.o. intake. The patient has not had any significant fevers over the past 24 hours. The patient denies any chills. The patient states her abdominal pain is less colicky. REVIEW OF SYSTEMS: Constitutional: The patient is alert. Patient is cooperative. Patient does not appear to be in any acute distress. Respiratory: Negative. Cardiovascular: Negative. Abdomen: Colicky abdominal cramping; no nausea, stools are more formed. Skin: Negative. Neurological: Negative. PHYSICAL EXAMINATION: Vital Signs: Temperature 97.5, pulse 69, blood pressure 97/67, respiratory rate 18, oxygen saturation 95% on room air. Respiratory: Lungs are clear to auscultation bilaterally. Cardiovascular: Regular rate and rhythm, no murmur. Abdomen: reel tender to palpation. Bowel sounds are hyperactive, but improved from yesterday. Abdomen is soft. No guarding. Skin: Warm and dry, intact. Neurological: The patient is alert. Patient is oriented to person, place, and time. No focal neurological deficits. General: The patient is alert. Patient is cooperative. The patient does not appear to be in any acute distress. LABORATORY STUDIES: 1. CBC: White blood cell count 13.3, hemoglobin 13.3, hematocrit 38.4, platelets 474,000, 8% bands, 7% lymphocytes, 14% monocytes. 2. CMP: Sodium 135, potassium 4.4, chloride 103, CO2 of 25, anion gap 11.4, BUN is 12, creatinine 0.8, GFR greater than 60, glucose 113, calcium 7.6. Bilirubin 0.5, AST 25, ALT 23, alkaline phosphatase 102, protein is 4.8, albumin 1.6. 3. Magnesium 2.2. ASSESSMENT: 1. Sepsis secondary to Clostridium difficile colitis. 2. Clostridium difficile colitis. 3. Acute kidney injury - resolved. 4. Abdominal pain secondary to Clostridium difficile. 5. Hyponatremia - stable. 6. Weakness and deconditioning. 7. Leukocytosis - improving. PLAN: Hospital day #4 for a 65-year-old female patient who was admitted with the above diagnoses. The patient's sepsis has essentially resolved. The patient will continue on vancomycin and Flagyl. We will discontinue Lovenox since the patient had a bloody stool this morning. We will continue to monitor stools. If they become more frequent with blood, we will monitor hemoglobin and vital signs. The patient again will receive 1 dose of Solu-Medrol today. Continue on cholestyramine as this seemed to help greatly. Continue BRAT diet. The patient is a full code 1. We will recheck laboratory work tomorrow morning. The patient will be either discharged home tomorrow or transitioned to swing bed depending upon her condition. TB: 04/03/2020 11:28:03 MODL: 04/03/2020 11:44:23 /[id number]
[2020-04-03] MEDS: Sodium Chloride 0.9% 10 ML Syringe FLUSH PRN ×2 (19:59→21:43)
[2020-04-04] MEDS: metroNIDAZOLE/Normal Saline 500 MG in Premix Bag 1 BAG IV SCH ×2 (05:04→13:42)
[2020-04-04 07:12] LABS: CHLORIDE,CL 105 mmol/L (98-107); SODIUM,NA 137 mmol/L (136-145)
[2020-04-04 07:17] LABS: ANION GAP 11.9 mmol/L (10-20)
[2020-04-04] MEDS: Cholestyramine/Sucrose Powder 4 GM Packet PO SCH (08:08)
[2020-04-04] MEDS: Mineral Oil/Petrolatum Ophth Oint 3.5 GM Tube EYEBOTH SCH (08:08)
[2020-04-04] MEDS: Vancomycin 125 MG Cap PO SCH ×2 (10:32→13:10)
--- NOTE | 2020-04-04 13:37 | PCM.DCSUM1 ---
Discharge Summary - Hospital Course Brief History: Mrs. Steel is a 65 yo female who was admitted with sepsis secondary to c difficile colitis after presenting to clinic for evaluation of weakness and diarrhea. - Discharge Data Discharge Date: 04/04/20 Discharge Disposition: Home, Self-Care 01 Condition: Good - Referral to Home Health Primary Care Physician: Juliana Mann MD - Discharge Diagnosis/Problem(s) (1) Sepsis SNOMED Code(s): 07813039 ICD Code: A41.9 - SEPSIS, UNSPECIFIED ORGANISM Status: Acute Current Visit: Yes Qualifiers: Sepsis type: sepsis due to unspecified organism Sepsis acute organ dysfunction status: with acute organ dysfunction Severe sepsis acute organ dysfunction type: acute renal failure Acute renal failure type: unspecified Severe sepsis shock status: without septic shock Qualified Code(s): A41.9 - Sepsis, unspecified organism; R65.20 - Severe sepsis without septic shock; N17.9 - Acute kidney failure, unspecified (2) C. difficile colitis SNOMED Code(s): 813764584 ICD Code: A04.72 - ENTEROCOLITIS D/T CLOSTRIDIUM DIFFICILE, NOT SPCF RECUR Status: Acute Current Visit: Yes (3) LESLY (acute kidney injury) SNOMED Code(s): 74914921, 04838162 ICD Code: N17.9 - ACUTE KIDNEY FAILURE, UNSPECIFIED Status: Acute Current Visit: No (4) Hyponatremia SNOMED Code(s): 24667632 ICD Code: E87.1 - HYPO-OSMOLALITY AND HYPONATREMIA Status: Acute Current Visit: Yes - Patient Summary/Data Operative Procedure(s) Performed: none Complications: none Consults: none Labs Pending at D/C: none Recommended Follow-up Testing/Procedures: none Planned Operative Procedure(s) after DC: none Hospital Course: The patient was admitted and given IV fluids as well as antibiotics. She received a large amount of fluid resuscitation in the first 24 hours of her hospitalization due to hypotension and tachycardia. The following day, she was having some shortness of breath. Her fluids were discontinued and this resolved. She was continued on IV flagyl and PO vancomycin. Her cramping and diarrhea were fairly persistent initially. Over the weekend, she was given a dose of steroids and started on cholestyramine. Her abdominal cramping then improved significantly. Her stools are still loose but are no longer purely water. Her nausea has been minimal and she has been drinking well. She has not vomited. Her appetite is still not great and she has been sticking mostly to a BRAT diet with advancing this as she has tolerated. She has been up and around in her room the past couple of days. She also now has developed some swelling in her legs. This is not overtly painful but is uncomfortable and is impacting her range of motion somewhat. She had blood in her stools yesterday morning but that has resolved. No blood in the stools today. Her hemoglobins have been stable. She initially had a significant elevation in her WBC but this has trended down and is normal today. Discussed discharge home and she is agreeable to this. She will follow-up in clinic in 1 week. - Patient Instructions Diet: GI Soft/Low Residue/Low Fiber Activity: As Tolerated Driving: May Drive Today Showering/Bathing: May Shower Notify Provider of: Fever, Increased Pain, Nausea and/or Vomiting - Discharge Plan *PRESCRIPTION DRUG MONITORING PROGRAM REVIEWED*: No *COPY OF PRESCRIPTION DRUG MONITORING REPORT IN PATIENT KALPES[facility]: No Prescriptions/Med Rec: Cholestyramine/Sucrose [Cholestyramine] 4 gm PO BID #14 packet Vancomycin [Vancocin 125 MG Capsule] 250 mg PO QID 7 Days #28 cap Home Medications: Home Meds Calcium Carb, Citrate/Vit D3 [Calcium + D3 ER Tablet] 1 each PO BIDMEALS 03/30/20 [History] Multivitamin 1 each PO DAILY 03/30/20 [History] Acetaminophen [Tylenol] 650 mg PO Q6H PRN tablet 04/04/20 [Rx] Cholestyramine/Sucrose [Cholestyramine] 4 gm PO BID #14 packet 04/04/20 [Rx] Vancomycin [Vancocin 125 MG Capsule] 250 mg PO QID 7 Days #28 cap 04/04/20 [Rx] - Discharge Summary/Plan Comment DC Time >30 min.: Yes - General Info Date of Service: 04/04/20 Subjective Update: Patient states she is doing much better today than end of last week. Her cramping is gone. She is still having at least 1 loose stool/day but notes that there is at least some substance to this and not just water. She is able to tell the difference now between urine and stool; she is voiding well and urine is national facilities manager in color. No fever or chills. She had blood in the stools yesterday morning but that is now resolved and she has had no blood in the stools today. She has been up ambulating in her room without any issues. She does have some swelling in her legs that is bothersome in terms of pressure and limitations to her ROM. - Review of Systems General: Reports: No Symptoms HEENT: Reports: No Symptoms Pulmonary: Reports: No Symptoms Cardiovascular: Reports: No Symptoms Gastrointestinal: Reports: Diarrhea. Denies: Abdominal Pain, Nausea, Vomiting Genitourinary: Reports: No Symptoms Musculoskeletal: Reports: No Symptoms Skin: Reports: No Symptoms Neurological: Reports: No Symptoms Psychiatric: Reports: No Symptoms - Patient Data Vitals - Most Recent: Last Vital Signs Temp 37.0 C 04/04/20 10:00 Pulse 93 04/04/20 10:00 Resp 18 04/04/20 10:00 BP 136/87 04/04/20 10:00 Pulse Ox 98 04/04/20 10:00 Weight - Most Recent: 61.689 kg I&O - Last 24 hours: Intake & Output 04/03/20 04/04/20 04/04/20 22:59 06:59 14:59 Intake Total 863 035 5748 Balance [phone] Lab Results - Last 24 hrs: Laboratory Results - last 24 hr 04/04/20 04/04/20 Range/Units 06:23 06:23 WBC 9.4 (4.0-10.0) x10^3/uL RBC 4.35 (4.00-5.50) x10^6/uL Hgb 12.7 (12.0-16.0) g/dL Hct 37.3 (33.0-47.0) % MCV 85.7 (78.0-93.0) fL MCH 29.2 (26.0-32.0) pg MCHC 34.0 (32.0-36.0) g/dL RDW Coeff of Alicia 14.0 (10.0-15.0) % Plt Count 534 H (130-400) x10^3/uL Add Manual Diff Yes Neutrophils % (Manual) 61 (50-80) % Band Neutrophils % 3 (0-6) % Lymphocytes % (Manual) 15 L (25-50) % Monocytes % (Manual) 21 H (2-11) % Hypersegmented Neuts Occasional H Platelet Estimate Increased H Acanthocytes (Spur) Occasional Sodium 137 (136-145) mmol/L Potassium 4.9 (3.5-5.1) mmol/L Chloride 105 (98-107) mmol/L Carbon Dioxide 25 (21-32) mmol/L Anion Gap 11.9 (10-20) mmol/L BUN 13 (7-18) mg/dL Creatinine 0.8 (0.55-1.02) mg/dL Est Cr Clr Drug Dosing 64.76 mL/min Estimated GFR (MDRD) > 60 Glucose 91 (74-106) mg/dL Calcium 7.6 L (8.5-10.1) mg/dL C-Reactive Protein 3.9 H (<=0.9) mg/dL Med Orders - Current: Current Medications Acetaminophen (Tylenol) 650 mg PO Q6H PRN PRN Reason: Fever Last Admin: 04/01/20 16:00 Dose: 650 mg Documented by: Cholestyramine Resin (Cholestyramine Packet) 4 gm PO BID [facility] Last Admin: 04/04/20 08:08 Dose: 4 gm Documented by: Metronidazole 500 mg/ Premix 100 mls @ 100 mls/hr IV Q8H [facility] Last Admin: 04/04/20 05:04 Dose: 100 mls/hr Documented by: Mineral Oil/White Petrolatum (Lacri-Lube S.O.P Oint) 0 gm EYEBOTH BID [facility] Last Admin: 04/04/20 08:08 Dose: Not Given Documented by: Ondansetron HCl (Zofran) 4 mg IVPUSH Q8H PRN PRN Reason: Nausea Last Admin: 03/31/20 13:02 Dose: 4 mg Documented by: Sodium Chloride (Saline Flush) 10 ml FLUSH ASDIRECTED PRN PRN Reason: Keep Vein Open Last Admin: 04/03/20 21:43 Dose: 10 ml Documented by: Vancomycin HCl (Vancocin 125 Mg Capsule) 500 mg PO QID [facility] Last Admin: 04/04/20 13:10 Dose: 500 mg Documented by: Discontinued Medications Enoxaparin Sodium (Lovenox) 40 mg SUBCUT DAILY [facility] Last Admin: 04/03/20 08:40 Dose: Not Given Documented by: Sodium Chloride (Normal Saline) 500 mls @ 500 mls/hr IV ONETIME ONE Stop: 03/31/20 12:50 Last Admin: 03/31/20 12:24 Dose: 500 mls/hr Documented by: Sodium Chloride (Normal Saline) 1,000 mls @ 150 mls/hr IV ASDIRECTED [facility] Last Admin: 04/01/20 02:55 Dose: 150 mls/hr Documented by: Sodium Chloride (Normal Saline) 500 mls @ 500 mls/hr IV ONETIME ONE Stop: 03/31/20 14:51 Last Admin: 03/31/20 13:52 Dose: 500 mls/hr Documented by: Sodium Chloride (Normal Saline) 1,000 mls @ 999 mls/hr IV ONETIME ONE Stop: 03/31/20 15:09 Last Admin: 03/31/20 14:09 Dose: 999 mls/hr Documented by: Metronidazole (Flagyl 500 Mg In Ns 100 Ml) Confirm Administered Dose 100 mls @ as directed .ROUTE .STK-MED ONE Stop: 04/01/20 19:16 Last Admin: 04/01/20 22:33 Dose: Not Given Documented by: Ibuprofen (Motrin) 600 mg PO Q6H PRN PRN Reason: Pain/Fever Methylprednisolone Sodium Succinate (Solu-Medrol) 40 mg IVPUSH ONETIME ONE Stop: 04/02/20 11:17 Last Admin: 04/02/20 11:43 Dose: 40 mg Documented by: Methylprednisolone Sodium Succinate (Solu-Medrol) 40 mg IVPUSH ONETIME ONE Stop: 04/03/20 09:48 Last Admin: 04/03/20 11:35 Dose: 40 mg Documented by: - Exam General: Reports: Alert, Oriented, Cooperative, No Acute Distress HEENT: Reports: Mucous Membr. Moist/[place] Neck: Reports: Supple, Trachea Midline, No Thyromegaly. Denies: Lymphadenopathy Lungs: Reports: Clear to Auscultation, Normal Respiratory Effort Cardiovascular: Reports: Regular Rate, Regular Rhythm, No Murmurs GI/Abdominal Exam: Normal Bowel Sounds, Soft, Non-Tender, No Organomegaly, No Distention, No Mass Extremities: Normal Inspection, Non-Tender, Normal Capillary Refill, Other (trace pitting edema to the thigh bilaterally) Skin: Reports: Warm, Dry, Intact Neurological: Reports: No New Focal Deficit
[2020-04-04 14:53] VITALS: BP 131/80; PULSE 90
== END 2020-04-04 16:28 | disposition home or self-care (01) | DRG 872 ==
LOC: VM.MS 11:33
PROVIDERS: ADMIT Family Medicine; ATTEND Family Medicine
DX: A41.9 Sepsis, unspecified organism (principal); N17.9 Acute kidney failure, unspecified; A04.72 Enterocolitis due to Clostridium difficile, not specified as recurrent; E87.1 Hypo-osmolality and hyponatremia; R65.20 Severe sepsis without septic shock; Z79.899 Other long term (current) drug therapy; M19.90 Unspecified osteoarthritis, unspecified site; Z85.3 Personal history of malignant neoplasm of breast; Z90.89 Acquired absence of other organs
CPT/HCPCS: 36415; 74019; 80048; 80053; 83605; 83735; 85025; 86140; A9270-GY; J1650; J2405; J2920; J3490; J7030